=== PATIENT | female | born 1950 | race Two or more races ===

== ENCOUNTER 2020-07-29 11:02 | Outpatient (CLI) | payer OTHER | END 2020-07-29 11:05 | disposition home or self-care (01) | LOC: SONOGRAMA 11:02 | PROVIDERS: ATTEND Pathology Anatomic Pathology & Clinical Pathology | DX: E04.1 Nontoxic single thyroid nodule (principal); D34 Benign neoplasm of thyroid gland; E04.8 Other specified nontoxic goiter ==

== ENCOUNTER 2022-09-17 15:32 | Outpatient (CLI) | payer OTHER | END 2022-09-17 15:34 | disposition home or self-care (01) | LOC: SONOGRAMA 15:32 | PROVIDERS: ATTEND Pathology Anatomic Pathology & Clinical Pathology | DX: E04.2 Nontoxic multinodular goiter (principal) ==